=== PATIENT | female | born 1985 | race American Indian/Alaskan Native ===

== ENCOUNTER 2016-10-05 03:43 | Emergency (ER) | payer MEDICAID ==
[2016-10-05 04:38] VITALS: BP 114/68
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
== END 2016-10-05 08:52 | disposition home or self-care (01) ==
LOC: ED 03:43
DX: S09.90XA Unspecified injury of head, initial encounter (principal); J45.909 Unspecified asthma, uncomplicated; W22.8XXA Striking against or struck by other objects, initial encounter; Y93.9 Activity, unspecified; Y92.9 Unspecified place or not applicable; Y99.9 Unspecified external cause status
CPT/HCPCS: 70450; 99283

== ENCOUNTER 2016-10-07 19:19 | Emergency (ER) | payer OTHER, MEDICAID ==
[2016-10-07 19:47] VITALS: BP 109/64
[2016-10-07] MEDS ORDERED: TYLENOL PO ONE (19:48)
[2016-10-07] MEDS ORDERED: TYLENOL ONE (19:50)
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
== END 2016-10-07 22:01 | disposition home or self-care (01) ==
LOC: ED 19:19
DX: S13.4XXA Sprain of ligaments of cervical spine, initial encounter (principal); S76.011A Strain of muscle, fascia and tendon of right hip, initial encounter; S46.911A Strain of unspecified muscle, fascia and tendon at shoulder and upper arm level, right arm, initial encounter; S46.912A Strain of unspecified muscle, fascia and tendon at shoulder and upper arm level, left arm, initial encounter; V49.49XA Driver injured in collision with other motor vehicles in traffic accident, initial encounter; Y92.488 Other paved roadways as the place of occurrence of the external cause; Y93.89 Activity, other specified; Y99.8 Other external cause status
CPT/HCPCS: 72040

== ENCOUNTER 2016-10-26 04:45 | Emergency (ER) | payer MEDICAID, OTHER ==
[2016-10-26 05:02] VITALS: BP 124/80
[2016-10-26] MEDS ORDERED: FUL-GLO OP ONE (05:12)
[2016-10-26] MEDS ORDERED: TETRACAINE 0.5% ONE (05:12)
--- NOTE | 2016-10-26 05:18 | Emergency Department Report ---
ED Eye Problem HPI - General Chief complaint: Eye Problems Stated complaint: RIGHT EYE IRRITATION Time Seen by Provider: 10/26/16 05:00 Source: patient Mode of arrival: Ambulatory Limitations: No Limitations - History of Present Illness Initial comments: Patient is a 31-year-old female with no prior medical history who presents to ED complaining of right eye redness and itching 2 days. Patient states yesterday afternoon she saw a small fly flying to her side. Patient states she tried a swat the fly away that she hit her eye. Patient states later on days she started experiencing eye redness . Patient states she is clear drainage from that eye. She denies vision loss she denies blurred vision. She denies eye pain. MD chief complaint: eye redness Location: right eye Eye Symptoms: redness, itching Severity: moderate - Related Data Previous Rx's Medication Instructions Recorded Last Taken Type Ferrous Sulfate [Feosol 325 MG tab] 325 mg PO TID #90 tablet 03/27/14 Unknown Rx Ibuprofen [Motrin 800 MG tab] 800 mg PO Q8H PRN #90 tablet 03/27/14 Unknown Rx oxyCODONE /ACETAMINOPHEN [Percocet 1 tab PO Q6HR PRN #30 tablet 03/27/14 Unknown Rx 5/325 mg] Naproxen [Naprosyn TAB] 500 mg PO BID #14 tablet 10/05/16 Unknown Rx traMADol [Ultram 50 MG tab] 50 mg PO Q6HR PRN #18 tablet 10/05/16 Unknown Rx Cyclobenzaprine [Flexeril] 10 mg PO TID PRN #15 tablet 10/07/16 Unknown Rx Ibuprofen [Motrin 600 MG tab] 600 mg PO Q8H PRN #15 tablet 10/07/16 Unknown Rx Polymyxin B Sulf/Trimethoprim 1 drop OP QID #10 ml 10/26/16 Unknown Rx [Polytrim Eye Drops [id number]/0.1%] Allergies Allergy/AdvReac Type Severity Reaction Status Date / Time No Known Allergies Allergy Verified 03/27/14 18:53 ED Review of Systems ROS: Stated complaint: RIGHT EYE IRRITATION Other details as noted in HPI Constitutional: denies: chills, fever Eyes: denies: eye pain, eye discharge, vision change ENT: denies: ear pain, throat pain Respiratory: denies: cough, shortness of breath, wheezing Cardiovascular: denies: chest pain, palpitations Endocrine: no symptoms reported Gastrointestinal: denies: abdominal pain, nausea, diarrhea Genitourinary: denies: urgency, dysuria, discharge Musculoskeletal: denies: back pain, joint swelling, arthralgia Skin: denies: rash, lesions Neurological: denies: headache, weakness, paresthesias Psychiatric: denies: anxiety, depression Hematological/Lymphatic: denies: easy bleeding, easy bruising ED Past Medical Hx - Past Medical History Previous Medical History?: Yes Hx Hypertension: No Hx Diabetes: No Hx Deep Vein Thrombosis: No Hx Renal Disease: No Hx Sickle Cell Disease: No Hx Seizures: No Hx Asthma: Yes Hx COPD: No Hx HIV: No - Surgical History Past Surgical History?: Yes Additional Surgical History: x3 - Social History Smoking Status: Former Smoker Substance Use Type: Alcohol - Medications Home Medications: Home Medications Medication Instructions Recorded Confirmed Last Taken Type Ferrous Sulfate [Feosol 325 MG tab] 325 mg PO TID #90 tablet 03/27/14 Unknown Rx Ibuprofen [Motrin 800 MG tab] 800 mg PO Q8H PRN #90 tablet 03/27/14 Unknown Rx oxyCODONE /ACETAMINOPHEN [Percocet 1 tab PO Q6HR PRN #30 tablet 03/27/14 Unknown Rx 5/325 mg] Naproxen [Naprosyn TAB] 500 mg PO BID #14 tablet 10/05/16 Unknown Rx traMADol [Ultram 50 MG tab] 50 mg PO Q6HR PRN #18 tablet 10/05/16 Unknown Rx Cyclobenzaprine [Flexeril] 10 mg PO TID PRN #15 tablet 10/07/16 Unknown Rx Ibuprofen [Motrin 600 MG tab] 600 mg PO Q8H PRN #15 tablet 10/07/16 Unknown Rx Polymyxin B Sulf/Trimethoprim 1 drop OP QID #10 ml 10/26/16 Unknown Rx [Polytrim Eye Drops [id number]/0.1%] ED Physical Exam - General Limitations: No Limitations General appearance: alert, in no apparent distress - Head Head exam: Present: atraumatic, normocephalic - Eye Eye exam: Present: normal appearance, PERRL, EOMI, conjunctival injection, periorbital swelling. Absent: scleral icterus, periorbital tenderness Pupils: Present: normal accommodation - Expanded Eye Exam Expanded Eyelids: Normal Inspection: Left, Swelling: Right Pupils: Regular, Round: Bilateral, Reactive: Bilateral Sclera/Conjunctival: Normal Inspection: Left, Injection: Right Anterior chamber: Normal Inspection: Bilateral Visual acuity (R) = 20/: 30 Visual acuity (L) = 20/: 72 With correction: No - ENT ENT exam: Present: mucous membranes moist - Neck Neck exam: Present: normal inspection - Respiratory Respiratory exam: Present: normal lung sounds bilaterally. Absent: respiratory distress - Cardiovascular Cardiovascular Exam: Present: regular rate, normal rhythm. Absent: systolic murmur, diastolic murmur, rubs, gallop - GI/Abdominal GI/Abdominal exam: Present: soft, normal bowel sounds - Extremities Exam Extremities exam: Present: normal inspection - Back Exam Back exam: Present: normal inspection - Neurological Exam Neurological exam: Present: alert, oriented X3 - Psychiatric Psychiatric exam: Present: normal affect, normal mood - Skin Skin exam: Present: warm, dry, intact, normal color. Absent: rash ED Course Vital Signs 10/26/16 04:50 Temperature 99 F Pulse Rate 88 Respiratory 18 Rate Blood Pressure 124/80 O2 Sat by Pulse 99 Oximetry ED Medical Decision Making - Medical Decision Making 31-year-old female presents with corneal abrasion/conjunctivitis ED course: Slit lamp test positive for corneal abrasion 6:00, uptake at 6:00, no foreign objects seen Discussed patient will go home on some antibiotic eyedrops. Discussed patient to follow up with dog catcher if symptoms worsen to return to ED otherwise follow up with primary care physician as well. Vital signs are normal. Patient is in no acute distress. Vision is intact bilaterally, no loss of vision Critical care attestation.: If time is entered above; I have spent that time in minutes in the direct care of this critically ill patient, excluding procedure time. ED Disposition Clinical Impression: Conjunctivitis Qualifiers: Conjunctivitis type: acute Acute conjunctivitis type: unspecified Laterality: right Qualified Code(s): H10.31 - Unspecified acute conjunctivitis, right eye Corneal abrasion, right Qualifiers: Encounter type: initial encounter Qualified Code(s): S05.01XA - Injury of conjunctiva and corneal abrasion without foreign body, right eye, initial encounter Disposition: TO HOME OR SELFCARE Is pt being admited?: No Does the pt Need Aspirin: No Condition: Stable Instructions: Conjunctivitis (ED), Orbital Cellulitis (ED), Subconjunctival Hemorrhage (ED), Corneal Abrasion (ED) Prescriptions: Polymyxin B Sulf/Trimethoprim [Polytrim Eye Drops [id number]/0.1%] 1 drop OP QID #10 ml Referrals: SRAVAN AVILES MD [Staff Physician] - 3-5 Days [facility] [place]] - 3-5 Days [facility] [Outside] - 3-5 Days Forms: Work/School Release Form(ED) Time of Disposition: 05:50
[2016-10-26] MEDS ORDERED: BSS 1 DROPS, TETRACAINE 0.5% 1 DROPS, FUL-GLO 1 MG TP ONE (05:23)
== END 2016-10-26 05:50 | disposition home or self-care (01) ==
LOC: ED 04:45
DX: S05.01XA Injury of conjunctiva and corneal abrasion without foreign body, right eye, initial encounter (principal); H10.31 Unspecified acute conjunctivitis, right eye; J45.909 Unspecified asthma, uncomplicated; Z87.891 Personal history of nicotine dependence; X58.XXXA Exposure to other specified factors, initial encounter; Y93.9 Activity, unspecified; Y92.9 Unspecified place or not applicable; Y99.9 Unspecified external cause status
CPT/HCPCS: 99283

== ENCOUNTER 2018-04-22 09:24 | Emergency (ER) | payer MEDICAID | END 2018-04-22 11:18 | disposition left against medical advice (07) | LOC: ED 09:24 ==

== ENCOUNTER 2020-02-28 09:00 | Inpatient (IN) | payer MEDICAID ==
--- NOTE | 2020-02-28 10:27 | History and Physical Report ---
History of Present Illness Date of examination: 02/28/20 Date of admission: 02/28/20 09:00 History of present illness: PT is a 34 yo at 39w 3d who is here for her RLTCS. PT with h/o C/S x 3. Preg mostly uncomplicated. PT had GC in October. Anemia. GBS pos. PT is on LDA for h/o preeclampsia but not in this . Past History Past Medical History: asthma, other (GC, anemia, h/o depression.) Past Surgical History: section (x 3) - Obstetrical History Expected Date of Delivery: 03/03/20 Actual Gestation: 39 Week(s) 3 Day(s) : 5 Hx # Term Pregnancies: 3 Spontaneous Abortions: 1 Number of Living Children: 3 Medications and Allergies Allergies Allergy/AdvReac Type Severity Reaction Status Date / Time No Known Allergies Allergy Verified 02/28/20 10:07 Home Medications Medication Instructions Recorded Confirmed Last Taken Type Ferrous Sulfate [Feosol 325 MG tab] 325 mg PO TID #90 tablet 03/27/14 Unknown Rx Ibuprofen [Motrin 800 MG tab] 800 mg PO Q8H PRN #90 tablet 03/27/14 Unknown Rx oxyCODONE /ACETAMINOPHEN [Percocet 1 tab PO Q6HR PRN #30 tablet 03/27/14 Unknown Rx 5/325 mg] Naproxen [Naprosyn TAB] 500 mg PO BID #14 tablet 10/05/16 Unknown Rx traMADoL [Ultram 50 MG tab] 50 mg PO Q6HR PRN #18 tablet 10/05/16 Unknown Rx Cyclobenzaprine [Flexeril] 10 mg PO TID PRN #15 tablet 10/07/16 Unknown Rx Ibuprofen [Motrin 600 MG tab] 600 mg PO Q8H PRN #15 tablet 10/07/16 Unknown Rx Polymyxin B Sulf/Trimethoprim 1 drop OP QID #10 ml 10/26/16 Unknown Rx [Polytrim Eye Drops [id number]/0.1%] Review of Systems All systems: negative (except HPI) - Vital Signs Vital signs: Vital Signs Pulse BP 102 H 117/59 02/28/20 10:02 02/28/20 10:02 Temp Pulse Resp BP Pulse Ox 103 H 117/59 99 02/28/20 10:18 02/28/20 10:02 02/28/20 10:18 - Physical Exam Abdomen: Positive: normal appearance, soft. Negative: tenderness Results Result Diagrams: 02/28/20 10:50 All other labs normal. Assessment and Plan - Patient Problems (1) Previous section Current Visit: Yes Status: Acute Plan to address problem: PT is for RLTCS. Patient fully consented for the surgery. Risks, benefits, and alternatives were all discussed with the patient including risk of bleeding, infection, and potential for injury. Patient understands and accepts these risks. Patient agrees to proceed with surgery. All questions were answered.
--- NOTE | 2020-02-28 10:28 | Anesthesia Day of Surgery ---
Anesthesia Day of Surgery - Day of Surgery Patient Examined: Yes Patient H&P Reviewed: Yes Patient is NPO: Yes Beta Blockers: No Cardiac Clearance: No Pulmonary Clearance: No Rubio's Test: N/A
--- NOTE | 2020-02-28 10:29 | Anesthesia Consultation ---
Anesthesia Consult and Med Hx Date of service: 02/28/20 - Airway Anesthetic Teeth Evaluation: Good ROM Head & Neck: Adequate Mental/Hyoid Distance: Adequate Mallampati Class: Class III Intubation Access Assessment: Possibly Difficult - Pulmonary Exam CTA: Yes - Cardiac Exam Cardiac Exam: RRR - Pre-Operative Health Status ASA Pre-Surgery Classification: ASA2 Proposed Anesthetic Plan: Spinal Nerve Block: TAP - Pulmonary Hx Smoking: No Hx Asthma: Yes COPD: No Hx Pneumonia: No Hx Sleep Apnea: No - Cardiovascular System Hx Hypertension: Yes Hx Heart Attack/AMI: No - Central Nervous System Hx Seizures: No Hx Psychiatric Problems: Yes (depression/ 2014 no meds) - Gastrointestinal Hx Gastroesophageal Reflux Disease: No - Endocrine Hx Renal Disease: No Hx End Stage Renal Disease: No Hx Insulin Dependent Diabetes: No Hx Non-Insulin Dependent Diabetes: No Hx Hypothyroidism: No Hx Hyperthyroidism: No - Hematic Hx Anemia: No Hx Sickle Cell Disease: No - Other Systems Hx Alcohol Use: No Hx Obesity: Yes
[2020-02-28] MEDS ORDERED: BICITRA ORAL LIQD 30ML PO SCH (10:30)
[2020-02-28] MEDS ORDERED: METOCLOPRAMIDE 10 MG/2 ML INJ IV SCH (10:30)
[2020-02-28] MEDS ORDERED: FAMOTIDINE 20 MG/2 ML INJ IV SCH (10:30)
[2020-02-28] MEDS ORDERED: LACTATED RINGERS 2,000 ML ONE (10:34)
[2020-02-28] MEDS ORDERED: PROMETHAZINE 25 MG TAB PO PRN (11:00)
[2020-02-28] MEDS ORDERED: PROMETHAZINE 25 MG RECT SUPP PR PRN (11:00)
[2020-02-28] MEDS ORDERED: NalbUPHINE 10 MG/1 ML INJ IV PRN (11:00)
[2020-02-28] MEDS ORDERED: ONDANSETRON 4 MG/2 ML INJ IV PRN ×2 (11:00→14:28)
[2020-02-28] MEDS ORDERED: LACTATED RINGERS 1,000 ML IV SCH (11:00)
[2020-02-28] MEDS ORDERED: OXYTOCIN DRIP 30 UNITS/500 ML BAG IV SCH ×2 (11:00→15:00)
[2020-02-28] MEDS ORDERED: diphenhydrAMINE 50 MG/ML VIAL IV PRN (11:00)
[2020-02-28] MEDS ORDERED: NALOXONE 0.4 MG/1 ML INJ IV PRN ×2 (11:00→14:24)
[2020-02-28] MEDS ORDERED: HYDROmorphone 1 MG/1 ML INJ IV PRN (11:00)
[2020-02-28 11:27] LABS: Basophils % (Auto) 0.1 % (0.0-1.8); Eosinophils % (Auto) 0.6 % (0.0-4.3); Hematocrit 34.8 % (30.3-42.9); Hemoglobin 11.5 gm/dl (10.1-14.3); Lymphocytes # (Auto) 1.7 K/mm3 (1.2-5.4); Lymphocytes % (Auto) 19.6 % (13.4-35.0); Mean Corpuscular HGB Conc 33 % (30-34); Mean Corpuscular Volume 85 fl (79-97); Monocytes # (Auto) 0.8 K/mm3 (0.0-0.8); Monocytes % (Auto) 9.5 % (0.0-7.3); Platelet Count 240 K/mm3 (140-440); Red Blood Count 4.11 M/mm3 (3.65-5.03); Red Cell Distribution Width 15.2 % (13.2-15.2)
[2020-02-28] MEDS ORDERED: miSOPROStol 200 MCG TAB ONE (11:37)
[2020-02-28] MEDS ORDERED: BUPIVACAINE /DEX-WATER 0.75% (2 ML) AMPULE INFILTRATI ONE (12:14)
[2020-02-28] MEDS ORDERED: BUPIVACAINE/PF (0.5%) 5 MG/1 ML 30 ML VIAL INFILTRATI ONE (12:14)
[2020-02-28] MEDS ORDERED: ONDANSETRON 4 MG/2 ML INJ ONE (12:14)
[2020-02-28] MEDS ORDERED: KETOROLAC 30 MG/1 ML INJ ONE (12:14)
[2020-02-28] MEDS ORDERED: ceFAZolin/STERILE WATER 2 GM/20 ML SYRINGE IV ONE (12:26)
--- NOTE | 2020-02-28 12:51 | Progress Note ---
Spinal Anesthesia Block - Spinal Anesthesia Block Start Time: 12:26 Stop Time: 12:40 Performed by:: ANAHI OROZCO ([facility]) Procedure: Spinal anesthesia block is being performed for [C/S]. H&P, labs have been reviewed. Patient's questions and concerns have been answered. Informed consent has been performed. Timeout has was performed. Patient in sitting position on side of bed. Sterile prep and drape was performed. 3 mL 1% l idocaine skin wheal at L [3]-L [4]. Needle introducer advanced. 25-gauge spinal needle advanced, [+] CSF [-] blood. [Marcaine 13.5 and Precedex 30mcg] Spinal dose was given. All needles removed. Patient tolerated procedure well.
[2020-02-28] MEDS ORDERED: fentaNYL 100 MCG/2 ML INJ ONE (13:17)
[2020-02-28] MEDS ORDERED: propofoL 200 MG/20 ML VIAL IV ONE ×2 (13:19→13:39)
[2020-02-28] MEDS ORDERED: KETOROLAC 30 MG/1 ML INJ IV PRN (14:24)
[2020-02-28] MEDS ORDERED: LANOLIN/ZINC/DIMETHICONE (LANSINOH) 7 GM TP PRN (14:24)
[2020-02-28] MEDS ORDERED: WITCH HAZEL/ GLYCERIN PAD TP PRN (14:24)
--- NOTE | 2020-02-28 14:24 | Procedure Note ---
OB Delivery Note - Delivery Date of Delivery: 02/28/20 Surgeon: MARILU RUST Estimated blood loss: other (800cc) - Section Preop diagnosis: repeat Postop diagnosis: same section procedure: section, repeat low transverse Disposition: PACU Complications: none Narrative: Indication: 34 yo at 39w 3d with h/o 3 C-sections is here for RLTCS Findings: Normal uterus, tubes and ovaries except for some intra-abdominal scarring. Patient had a thick band of scarring between the anterior uterine serosal wall and the anterior peritoneal wall. Clear fluid. No nuchal cord. Procedure: Patient taken to the operating room and prepped and draped in the us ual fashion. Pfannenstiel skin incision was made and carried down to the underlying fascia. Fascia was incised and the incision was extended bilaterally. Rectus fascia dissected off the rectus muscle both superiorly and inferiorly. Peritoneum identified tented up and entered. The above-noted thick band of scar tissue had to be suture ligated using 0 Vicryl x2. Peritoneal incision extended superiorly and inferiorly with good visualization of the bladder. Bladder blade was placed. Uterine incision was made and the incision was extended bilaterally. The baby was delivered from in the typical vertex fashion. Baby bulb suctioned at the incision site and again after delivery. Cord was delayed clamped and cut and handed off to waiting team. The placenta was delivered spontaneously. The uterus was exteriorized and cleared of all clots and debris. Uterine incision closed with 0 Vicryl in a running locked fashion followed by a second imbricating layer of 0 Vicryl. Several additional [id number] sutures were required and eventually good hemostasis was noted. Her urine was clear. Uterus tubes and ovaries were returned to the abdominal cavity. Gutters were cleared of all clots and debris and the pelvis was well irrigated. Good hemostasis noted. Surgicel and Interceed placed over the uterine incision and over the lower uterine segment in the midline. Attention was turned to the rectus fascia which was reapproximated with 0 Vicryl in a running fashion. Subcutaneous tissue was irrigated and reapproximated with 2-0 Vicryl in a running fashion. Skin was closed with 4-0 Vicryl in a subcuticular fashion followed by Dermabond. The procedure was concluded at this point and the patient tolerated the procedure well. All instrument and lap counts were correct. - Infant A at 1 minute: 8 at 5 minutes: 9 Gender: Female
[2020-02-28] MEDS ORDERED: SENNOSIDES 8.6 MG TAB PO PRN (14:28)
[2020-02-28] MEDS ORDERED: SIMETHICONE 80 MG CHEW TAB PO PRN (14:28)
[2020-02-28] MEDS ORDERED: MAGNESIUM HYDROXIDE (MOM) ORAL LIQD UDC PO PRN (14:28)
--- NOTE | 2020-02-28 14:48 | Progress Note ---
Regional Anesthesia Block - Regional Anesthesia Block Start Time: 14:37 Stop Time: 14:45 Performed By:: ANAHI OROZCO (Nick [facility]) Procedure: Patient consented for TAP block for post surgical pain management. Patient identified, monitors placed, and time out performed. Mid axillary TAP identified bilaterally via ultrasound. Skin prepped bilaterally with [chlorhexidine] and [20g stimuplex] needle advanced to the TAP. 30ml [Marcaine 0.25% with 25mcg Precedex and Decadron 4mg] injected under ultrasound guidance on the [left] side. 30ml [Marcaine 0.25% with 25mcg Precedex and Decadron 4mg] injected under ultrasound guidance on the [right] side.
[2020-02-28] MEDS: oxyCODONE /ACETAMINOPHEN 5-325MG TAB PO PRN (20:57)
[2020-02-29] MEDS: oxyCODONE /ACETAMINOPHEN 5-325MG TAB PO PRN ×3 (01:57→18:28)
[2020-02-29] MEDS: IBUPROFEN 800 MG TAB PO PRN ×3 (06:10→22:11)
[2020-02-29 06:58] LABS: Hematocrit 32.4 % (30.3-42.9); Hemoglobin 10.6 gm/dl (10.1-14.3)
--- NOTE | 2020-02-29 10:51 | Post Anesthesia Evaluation ---
- Post Anesthesia Evaluation Patient Participated: Yes Airway Patent: Yes Stable Respiratory Function: Yes Nausea/Vomiting: No Temp > 96.8F: Yes Pain Manageable: Yes Adequeate Hydration: Yes Anesthesia Complications: No Block Receding Appropriately: Yes Patient on Ventilator: No
[2020-02-29] MEDS ORDERED: IBUPROFEN 800 MG TAB PO PRN (14:24)
[2020-02-29] MEDS ORDERED: ALBUTEROL 2.5 MG/3 ML NEBU IH ONE (18:36)
--- NOTE | 2020-02-29 21:36 | Progress Note ---
Assessment and Plan A: S/P repeat LTCS Hx asthma; crackles rich lobes P: Continue monitoring Nebulizer tx prn Encourage ambulation and incentive kaykay use Subjective - Subjective Date of service: 02/29/20 Principal diagnosis: Repeat LTCS Patient reports: appetite normal, voiding normally, pain well controlled, ambulating normally, other (PASSING GAS) : doing well, nursing well Objective - Vital Signs Latest vital signs: Vital Signs Temp Pulse Pulse Resp Resp BP BP 02/29/20 18:45 86 14 02/29/20 18:28 20 02/29/20 16:44 20 02/29/20 16:02 98.4 F 103 H 20 129/68 02/29/20 11:43 98.2 F 99 H 20 112/69 02/29/20 10:22 20 02/29/20 08:25 98.2 F 92 H 16 118/68 02/29/20 05:10 98.2 F 79 20 124/67 02/29/20 01:57 18 02/29/20 00:05 97.6 F 87 20 111/53 Pulse Ox 02/29/20 18:45 02/29/20 18:28 02/29/20 16:44 02/29/20 16:02 99 02/29/20 11:43 98 02/29/20 10:22 02/29/20 08:25 100 02/29/20 05:10 99 02/29/20 01:57 02/29/20 00:05 95 Intake and Output 02/29/20 02/29/20 02/29/20 06:59 14:59 22:59 Intake Total 480 240 Output Total 600 Balance -120 240 Intake: Oral 480 240 Output: Urine 600 Void 600 Other: Total, Intake Amount 240 120 Total, Output Amount 400 # Voids Void 2 1 - Exam Breasts: Present: normal Cardiovascular: Present: Regular rate Lungs: Present: Other (Scattered crackles rich lobes) Abdomen: Present: normal appearance, soft, normal bowel sounds Vulva: both: normal Uterus: Present: normal, firm, fundal height below umbilicus Extremities: Present: normal Incision: Present: normal, dry, intact, dressed
[2020-03-01] MEDS: oxyCODONE /ACETAMINOPHEN 5-325MG TAB PO PRN ×3 (00:56→15:39)
[2020-03-01] MEDS: IBUPROFEN 800 MG TAB PO PRN ×2 (09:09→18:15)
[2020-03-01] MEDS ORDERED: ALBUTEROL 2.5 MG/3 ML NEBU IH ONE (09:38)
--- NOTE | 2020-03-01 11:55 | Discharge Summary ---
Providers - Providers Date of Admission: 02/28/20 09:00 Date of discharge: 03/02/20 Attending physician: MARILU RUST Primary care physician: INPATIENT CARE MANAGER RN Hospitalization Reason for admission: section Delivery: Procedure: repeat low transverse Episiotomy: none Laceration: none Other procedures: none complications: none Discharge diagnosis: IUP at term delivered [place] baby: female Hospital course: See admission H & P; OB operative summary and PP progress notes Condition at discharge: Good Disposition: DC-01 TO HOME OR SELFCARE - Discharge Diagnoses (1) Status post repeat low transverse section Status: Acute (2) Anemia Status: Acute Qualifiers: Anemia type: other cause Other causes of anemia: acute posthemorrhagic Qualified Code(s): D62 - Acute posthemorrhagic anemia Comment: Asymptomatic Plan - Discharge Medications Prescriptions: Ibuprofen [Motrin 800 MG tab] 800 mg PO Q6H PRN #30 tablet PRN Reason: Pain, Mild (1-3) oxyCODONE /ACETAMINOPHEN [Percocet 5/325 mg] 1 tab PO Q6H PRN #30 tablet PRN Reason: Pain, Moderate (4-6) - Provider Discharge Summary Activity: routine, no sex for 6 weeks, no heavy lifting 4 weeks, no strenuous exercise Diet: other (Iron rich diet) Instructions: routine Additional instructions: [] Smoking cessation referral if applicable(refer to patient education folder for contact #) [] Refer to [facility]'s [facility] Center Booklet Call your doctor immediately for: * Fever > 100.5 * Heavy vaginal bleeding ( >1 pad per hour) * Severe persistent headache * Shortness of breath * Reddened, hot, painful area to leg or breast * Drainage or odor from incision. * Keep incision clean and dry at all times and follow doctor's instructions regarding bathing/showering - Follow up plan Follow up: MARILU RUST MD [Staff Physician] - 14 Days
[2020-03-01] MEDS ORDERED: ALBUTEROL 2.5 MG/3 ML NEBU IH PRN (16:52)
[2020-03-02] MEDS: IBUPROFEN 800 MG TAB PO PRN ×2 (00:45→15:44)
[2020-03-02] MEDS: oxyCODONE /ACETAMINOPHEN 5-325MG TAB PO PRN (08:51)
[2020-03-02 17:51] VITALS: BP 121/75
== END 2020-03-02 18:15 | disposition home or self-care (01) | DRG 765 ==
LOC: APU 09:00 → OB 16:13
PROVIDERS: ADMIT Obstetrics & Gynecology; ATTEND Obstetrics & Gynecology
PROC: 10D00Z1 Extraction of Products of Conception, Low, Open Approach (ICD-10-PCS; principal; 2020-02-28)
DX: O34.211 Maternal care for low transverse scar from previous cesarean delivery (principal); D62 Acute posthemorrhagic anemia; Z37.0 Single live birth; Z3A.39 39 weeks gestation of pregnancy; O99.344 Other mental disorders complicating childbirth; F32.9 Major depressive disorder, single episode, unspecified; O99.214 Obesity complicating childbirth; E66.9 Obesity, unspecified; O99.52 Diseases of the respiratory system complicating childbirth; J45.909 Unspecified asthma, uncomplicated; O90.81 Anemia of the puerperium; O99.824 Streptococcus B carrier state complicating childbirth
CPT/HCPCS: 36415; 85014; 85018; 85025; 86850; 86900; 86901; 94640; G0378; C1765; J0690; J1885; J2405; J2704; J2765; J3010; J3490

== ENCOUNTER 2020-03-12 12:55 | Observation (INO) | payer MEDICAID ==
[2020-03-12] MEDS ORDERED: MAGNESIUM SULFATE 4 GM/100 ML BAG IV ONE (14:08)
--- NOTE | 2020-03-12 14:46 | History and Physical Report ---
History of Present Illness Date of examination: 03/12/20 Date of admission: 03/12/20 13:21 History of present illness: 34 yo G5 P 4014 is now 2 weeks postop s/p RLTCS. She came to office today with RUIZ x 4 days and elevated BPs, both of which she did not have during the . Tylenol has not helped. BPs 147-154/100 in the office. No protein of urine dip. No h/o migraines. OF note, she has had preeclampsia in prior pregnancies. Past History Past Medical History: other (preeclampsia in prior pregnancies, asthma) Past Surgical History: section (x 4) [employer] History: trichomonas - Obstetrical History : 5 Para: 4 Hx # Term Pregnancies: 4 Spontaneous Abortions: 1 Number of Living Children: 4 Medications and Allergies Allergies Allergy/AdvReac Type Severity Reaction Status Date / Time No Known Allergies Allergy Verified 02/28/20 10:07 Home Medications Medication Instructions Recorded Confirmed Last Taken Type Ferrous Sulfate [Feosol 325 MG tab] 325 mg PO TID #90 tablet 03/27/14 03/01/20 Unknown Rx Ibuprofen [Motrin 800 MG tab] 800 mg PO Q8H PRN #90 tablet 03/27/14 03/01/20 Unknown Rx oxyCODONE /ACETAMINOPHEN [Percocet 1 tab PO Q6HR PRN #30 tablet 03/27/14 03/01/20 Unknown Rx 5/325 mg] Naproxen [Naprosyn TAB] 500 mg PO BID #14 tablet 10/05/16 03/01/20 Unknown Rx traMADoL [Ultram 50 MG tab] 50 mg PO Q6HR PRN #18 tablet 10/05/16 03/01/20 Unknown Rx Cyclobenzaprine [Flexeril] 10 mg PO TID PRN #15 tablet 10/07/16 03/01/20 Unknown Rx Ibuprofen [Motrin 600 MG tab] 600 mg PO Q8H PRN #15 tablet 10/07/16 03/01/20 Unknown Rx Polymyxin B Sulf/Trimethoprim 1 drop OP QID #10 ml 10/26/16 03/01/20 Unknown Rx [Polytrim Eye Drops [id number]/0.1%] Ibuprofen [Motrin 800 MG tab] 800 mg PO Q6H PRN #30 tablet 02/28/20 Unknown Rx oxyCODONE /ACETAMINOPHEN [Percocet 1 tab PO Q6H PRN #30 tablet 02/28/20 Unknown Rx 5/325 mg] Active Meds: Active Medications Magnesium Sulfate (Magnesium Sulfate 40gm/1000ml) 40 gm in 1,000 mls @ 50 mls/hr IV DIRECT KYARA Lactated Ringer's (Lactated Ringers) 1,000 mls @ 75 mls/hr IV DIRECT KYARA Labetalol HCl (Labetalol) 100 mg PO BID KYARA Review of Systems All systems: negative (except HPI) - Vital Signs Vital signs: Vital Signs Pulse BP Pulse Ox 50 L 164/86 96 03/12/20 14:01 03/12/20 14:01 03/12/20 14:01 Temp Pulse Resp BP Pulse Ox 99.1 F 56 L 14 166/85 100 03/12/20 14:02 03/12/20 14:36 03/12/20 14:02 03/12/20 14:29 03/12/20 14:36 - Physical Exam Abdomen: Positive: normal appearance, soft. Negative: tenderness Results All other labs normal. Assessment and Plan - Patient Problems (1) Preeclampsia in period Current Visit: Yes Status: Acute Plan to address problem: PP preeclampsia suspected especially with her new onset elevated BPs and persistent HAs. Will keep on Mag sulfate for 24 hrs, start Labetalol 100 mg BID and check preeclamptic labs. PT understands and agrees with the plan.
[2020-03-12] MEDS ORDERED: MAGNESIUM SULFATE 40GM/1000ML 40 GM/1,000 ML BAG IV SCH (15:00)
[2020-03-12] MEDS: LACTATED RINGERS 1,000 ML IV SCH (15:45)
[2020-03-12 16:50] LABS: Hematocrit 30.7 % (30.3-42.9); Hemoglobin 9.7 gm/dl (10.1-14.3); Mean Corpuscular HGB Conc 31 % (30-34); Mean Corpuscular Volume 84 fl (79-97); Platelet Count 285 K/mm3 (140-440); Red Blood Count 3.64 M/mm3 (3.65-5.03); Red Cell Distribution Width 14.6 % (13.2-15.2)
[2020-03-12 17:07] LABS: Alanine Aminotransferase 78 units/L (7-56); Albumin 3.6 g/dL (3.9-5); Blood Urea Nitrogen 14 mg/dL (7-17); Calcium 9.3 mg/dL (8.4-10.2); Hemolysis Index 13
[2020-03-12 17:10] LABS: BUN/Creatinine Ratio 20
[2020-03-12] MEDS: BUTALB/ACETAMINOPHEN/CAFFEINE TAB PO PRN (18:08)
[2020-03-12] MEDS ORDERED: ALBUTEROL 2.5 MG/3 ML NEBU IH PRN (18:37)
[2020-03-13] MEDS: BUTALB/ACETAMINOPHEN/CAFFEINE TAB PO PRN ×3 (00:31→08:20)
[2020-03-13] MEDS: LACTATED RINGERS 1,000 ML IV SCH (04:09)
--- NOTE | 2020-03-13 13:57 | Progress Note ---
Assessment and Plan - Patient Problems (1) Preeclampsia in period Current Visit: Yes Status: Acute Plan to address problem: Patient is stable status post almost 24 hours of magnesium sulfate with a resolved headache status post Fioricet. Blood pressures are stable on 100 twice daily of labetalol. Patient preeclamptic labs done yesterday which were within normal except her ALT was a little elevated at 78. We will repeat that today before the patient leaves. We will send patient home once for 24 hours of magnesium is completed and she will follow-up in the office in 1 week. Patient understands and agrees with the plan. Subjective - Subjective Date of service: 03/13/20 Interval history: 34 yo G5 P 4014 is now 2 weeks postop s/p RLTCS. She came to office today with RUIZ x 4 days and elevated BPs, both of which she did not have during the . Tylenol has not helped. BPs 147-154/100 in the office. No protein of urine dip. No h/o migraines. OF note, she has had preeclampsia in prior pregnancies. Patient reports: other (PT doing much better today. Pt is almost 24 hours completed on her magnesium sulfate. Patient was put on 100 mg twice daily of labetalol which did improve her blood pressure. Her headache though did not resolve until Fioricet was given. That is helped her headaches significantly and patient feels much better now. No other preeclamptic symptoms.) Objective - Vital Signs Latest vital signs: Vital Signs Temp Pulse Resp BP BP Pulse Ox 03/13/20 13:23 68 99 03/13/20 13:18 80 100 03/13/20 13:13 64 100 03/13/20 13:08 68 100 03/13/20 13:03 71 100 03/13/20 13:02 72 93 03/13/20 12:58 72 100 03/13/20 12:55 92 03/13/20 12:53 69 100 03/13/20 12:48 71 100 03/13/20 12:45 64 132/77 03/13/20 12:44 69 93 03/13/20 12:43 65 100 03/13/20 12:38 66 100 03/13/20 12:33 66 100 03/13/20 12:28 64 100 03/13/20 12:23 61 100 03/13/20 12:18 62 100 03/13/20 12:15 61 143/88 03/13/20 12:13 69 100 03/13/20 12:08 67 100 03/13/20 12:03 60 100 03/13/20 11:58 67 100 03/13/20 11:54 64 92 03/13/20 11:53 67 100 03/13/20 11:48 77 97 03/13/20 11:46 53 L 91 03/13/20 11:45 58 L 133/75 03/13/20 11:43 61 100 03/13/20 11:38 65 100 03/13/20 11:33 58 L 100 03/13/20 11:28 55 L 100 03/13/20 11:23 60 99 03/13/20 11:18 72 98 03/13/20 09:34 62 99 03/13/20 09:29 62 100 03/13/20 09:24 64 100 03/13/20 09:19 65 100 03/13/20 09:15 64 139/85 03/13/20 09:14 68 100 03/13/20 09:09 67 100 03/13/20 09:06 73 94 03/13/20 09:04 71 100 03/13/20 09:00 70 90 03/13/20 08:59 72 91 03/13/20 08:54 75 100 03/13/20 08:49 73 100 03/13/20 08:45 65 130/87 03/13/20 08:44 67 100 03/13/20 08:39 65 97 03/13/20 08:34 63 100 03/13/20 08:29 61 99 03/13/20 08:24 59 L 99 03/13/20 08:20 98.4 F 62 16 144/87 96 03/13/20 08:19 62 100 03/13/20 08:18 63 89 03/13/20 08:15 65 144/87 03/13/20 08:14 69 100 03/13/20 08:12 65 83 L 03/13/20 08:09 69 94 03/13/20 08:04 74 98 03/13/20 07:15 62 137/89 03/13/20 06:45 67 136/81 03/13/20 06:44 74 98 03/13/20 06:39 62 97 03/13/20 06:34 63 98 03/13/20 06:29 63 100 03/13/20 06:24 72 95 03/13/20 06:19 58 L 98 03/13/20 06:17 57 L 94 03/13/20 06:15 53 L 136/78 03/13/20 06:14 55 L 98 03/13/20 06:10 57 L 91 03/13/20 06:09 57 L 98 03/13/20 06:04 57 L 96 03/13/20 06:02 57 L 94 03/13/20 06:00 98.2 F 18 03/13/20 05:59 59 L 96 03/13/20 05:54 54 L 99 03/13/20 05:52 55 L 93 03/13/20 05:49 54 L 97 03/13/20 05:45 54 L 140/79 03/13/20 05:44 56 L 97 03/13/20 05:39 56 L 98 03/13/20 05:36 59 L 91 03/13/20 05:34 56 L 98 03/13/20 05:29 54 L 99 03/13/20 05:26 60 93 03/13/20 05:24 59 L 96 03/13/20 05:20 60 94 03/13/20 05:19 60 95 03/13/20 05:15 56 L 147/80 03/13/20 05:14 61 91 03/13/20 05:13 66 91 03/13/20 05:09 66 97 03/13/20 05:04 62 96 03/13/20 04:59 69 99 03/13/20 04:54 66 99 03/13/20 04:41 69 93 03/13/20 04:36 77 96 03/13/20 04:31 65 97 03/13/20 04:26 62 97 03/13/20 04:21 66 96 03/13/20 04:16 63 96 03/13/20 04:15 61 109/55 93 03/13/20 04:11 62 97 03/13/20 04:06 62 97 03/13/20 04:01 74 99 03/13/20 03:56 62 96 03/13/20 03:51 63 96 03/13/20 03:46 62 96 03/13/20 03:45 60 115/55 03/13/20 03:41 61 98 03/13/20 03:40 71 91 03/13/20 03:36 65 97 03/13/20 03:31 59 L 97 03/13/20 03:28 63 92 03/13/20 03:26 62 97 03/13/20 03:22 67 92 03/13/20 03:21 65 98 03/13/20 03:16 63 99 03/13/20 03:15 63 127/60 03/13/20 03:11 70 96 03/13/20 03:06 68 97 03/13/20 03:01 79 94 03/13/20 02:56 63 97 03/13/20 02:51 61 97 03/13/20 02:46 57 L 98 03/13/20 02:45 58 L 119/57 03/13/20 02:41 60 99 03/13/20 02:36 59 L 96 03/13/20 02:31 55 L 97 03/13/20 02:26 58 L 96 03/13/20 02:21 56 L 97 03/13/20 02:16 61 98 03/13/20 02:15 59 L 131/65 03/13/20 02:12 69 92 03/13/20 02:11 69 99 03/13/20 02:06 73 95 03/13/20 01:53 66 99 03/13/20 01:48 62 99 03/13/20 01:45 64 136/67 03/13/20 01:43 63 99 03/13/20 01:38 62 98 03/13/20 01:33 63 97 03/13/20 01:28 61 98 03/13/20 01:23 60 99 03/13/20 01:18 58 L 98 03/13/20 01:15 60 131/67 03/13/20 01:13 61 98 03/13/20 01:08 58 L 98 03/13/20 01:03 56 L 98 03/13/20 00:58 59 L 98 03/13/20 00:53 57 L 98 03/13/20 00:48 58 L 97 03/13/20 00:45 59 L 145/89 03/13/20 00:43 55 L 97 03/13/20 00:38 58 L 97 03/13/20 00:33 61 99 03/13/20 00:28 60 99 03/13/20 00:23 58 L 96 03/13/20 00:18 64 99 03/13/20 00:15 63 136/85 03/13/20 00:13 71 97 03/13/20 00:08 57 L 98 03/13/20 00:03 57 L 99 03/13/20 00:00 98 F 20 03/12/20 23:58 59 L 100 03/12/20 23:54 162 H 63 L 03/12/20 23:53 79 L 03/12/20 23:46 77 98 03/12/20 23:45 65 164/96 03/12/20 23:44 65 94 03/12/20 23:40 67 97 03/12/20 23:35 65 97 03/12/20 23:30 68 96 03/12/20 23:26 69 93 03/12/20 23:25 71 95 03/12/20 23:20 72 95 03/12/20 23:15 69 145/84 95 03/12/20 23:10 62 96 03/12/20 23:05 62 97 03/12/20 23:00 60 96 03/12/20 22:55 60 96 03/12/20 22:50 58 L 97 03/12/20 22:45 57 L 134/81 97 03/12/20 22:40 53 L 97 03/12/20 22:35 55 L 97 03/12/20 22:30 55 L 97 03/12/20 22:25 51 L 97 03/12/20 22:20 74 98 03/12/20 22:15 50 L 137/78 99 03/12/20 22:10 59 L 100 03/12/20 22:09 55 L 131/76 03/12/20 22:08 64 131/76 03/12/20 22:05 53 L 98 03/12/20 22:00 56 L 97 03/12/20 21:55 56 L 100 03/12/20 21:50 57 L 100 03/12/20 21:45 62 118/66 98 03/12/20 21:36 71 98 03/12/20 21:32 64 90 03/12/20 21:31 50 L 99 03/12/20 21:26 54 L 99 03/12/20 21:21 54 L 100 03/12/20 21:16 52 L 99 03/12/20 21:15 53 L 142/91 03/12/20 21:11 56 L 100 03/12/20 21:06 64 99 03/12/20 21:01 53 L 100 03/12/20 20:56 52 L 99 03/12/20 20:51 60 100 03/12/20 20:46 58 L 100 03/12/20 20:45 54 L 145/74 03/12/20 20:41 55 L 100 03/12/20 20:36 57 L 98 03/12/20 20:31 55 L 100 03/12/20 20:26 70 98 03/12/20 20:21 71 100 03/12/20 19:20 66 97 03/12/20 19:15 56 L 136/82 100 03/12/20 19:10 56 L 100 03/12/20 19:05 56 L 100 03/12/20 19:00 98.4 F 62 97 03/12/20 18:55 54 L 100 03/12/20 18:50 67 98 03/12/20 18:45 56 L 147/87 100 03/12/20 18:40 60 100 03/12/20 18:38 67 87 03/12/20 18:35 61 96 03/12/20 18:33 56 L 85 03/12/20 18:30 57 L 99 03/12/20 18:25 60 99 03/12/20 18:20 58 L 99 03/12/20 18:15 58 L 142/83 100 03/12/20 18:10 57 L 99 03/12/20 18:08 20 03/12/20 18:07 58 L 93 03/12/20 18:05 53 L 100 03/12/20 18:00 67 99 03/12/20 17:58 83 157/72 03/12/20 17:55 67 100 03/12/20 17:50 68 99 03/12/20 17:45 64 100 03/12/20 17:43 65 157/78 03/12/20 17:40 61 78 L 03/12/20 17:31 55 L 96 03/12/20 17:27 57 L 159/80 03/12/20 17:26 57 L 99 03/12/20 17:21 56 L 99 03/12/20 17:16 52 L 99 03/12/20 17:13 53 L 175/82 03/12/20 17:11 54 L 99 03/12/20 17:06 51 L 100 03/12/20 17:01 53 L 100 03/12/20 16:58 52 L 169/80 03/12/20 16:56 55 L 99 03/12/20 16:51 54 L 99 03/12/20 16:46 56 L 100 03/12/20 16:42 53 L 141/83 03/12/20 16:41 54 L 98 03/12/20 16:36 98.2 F 59 L 20 99 03/12/20 16:31 54 L 100 03/12/20 16:26 53 L 147/86 98 03/12/20 16:22 54 L 150/84 03/12/20 16:21 54 L 99 03/12/20 16:17 57 L 154/80 03/12/20 16:16 57 L 97 03/12/20 16:12 53 L 147/69 03/12/20 16:11 55 L 100 03/12/20 16:07 51 L 152/72 03/12/20 16:06 55 L 100 03/12/20 16:02 52 L 151/77 03/12/20 16:01 49 L 98 03/12/20 15:57 53 L 150/83 03/12/20 15:56 50 L 100 03/12/20 15:52 48 L 159/87 03/12/20 15:51 51 L 99 03/12/20 15:46 48 L 100 03/12/20 15:44 51 L 147/77 03/12/20 15:41 54 L 100 03/12/20 15:36 61 100 03/12/20 15:31 50 L 100 03/12/20 15:29 55 L 152/72 03/12/20 15:26 59 L 98 03/12/20 15:21 53 L 100 03/12/20 15:16 53 L 99 03/12/20 15:14 50 L 159/70 03/12/20 15:11 52 L 98 03/12/20 15:06 50 L 100 03/12/20 15:01 55 L 99 03/12/20 14:59 51 L 121/58 03/12/20 14:57 54 L 121/58 03/12/20 14:56 65 100 03/12/20 14:51 52 L 99 03/12/20 14:46 48 L 100 03/12/20 14:44 51 L 158/87 03/12/20 14:41 55 L 99 03/12/20 14:36 56 L 100 03/12/20 14:31 50 L 98 03/12/20 14:29 51 L 166/85 03/12/20 14:26 53 L 100 03/12/20 14:21 48 L 99 03/12/20 14:16 58 L 97 03/12/20 14:14 48 L 159/81 03/12/20 14:11 50 L 100 03/12/20 14:06 60 99 03/12/20 14:02 99.1 F 53 L 14 164/86 99 03/12/20 14:01 50 L 164/86 96 Intake and Output 03/12/20 03/13/20 03/13/20 23:59 07:59 15:59 Intake Total 930 Output Total 600 1650 Balance -600 -720 Intake: IV 930 Lactated Ringers 1,000 ml 930 @ 75 mls/hr IV DIRECT KYARA Rx#:[id number] Output: Urine 600 1650 Void 600 1650 Other: Total, Output Amount 400 500 # Voids Void 1 1 - Labs Labs: Abnormal lab results 03/12/20 03/12/20 03/12/20 Range/Units 18:12 Unknown Unknown RBC 3.64 L (3.65-5.03) M/mm3 Hgb 9.7 L (10.1-14.3) gm/dl MCH 27 L (28-32) pg Chloride 109.4 H (98-107) mmol/L Magnesium 3.40 H (1.7-2.3) mg/dL ALT 78 H (7-56) units/L Albumin 3.6 L (3.9-5) g/dL 03/13/20 03/13/20 Range/Units 00:13 06:25 RBC (3.65-5.03) M/mm3 Hgb (10.1-14.3) gm/dl MCH (28-32) pg Chloride (98-107) mmol/L Magnesium 4.50 H 5.40 H (1.7-2.3) mg/dL ALT (7-56) units/L Albumin (3.9-5) g/dL
--- NOTE | 2020-03-13 14:01 | Short Stay Summary ---
Short Stay Documentation Date of service: 03/13/20 Narrative H&P: Patient observed for 24 hours for preeclampsia and severe headache which was resolved with Fioricet. Patient also sent home with 100 mg twice daily of labetalol to control her blood pressure. PT was on Magnesium during her stay. Patient advised to follow-up in the office in 1 week. Please see H&P and progress note for details. - History H&P: dictated - Allergies and Medications Current Medications: Allergies No Known Allergies Allergy (Verified 02/28/20 10:07) Home Medications Medication Instructions Recorded Confirmed Last Taken Type Ferrous Sulfate [Feosol 325 MG tab] 325 mg PO TID #90 tablet 03/27/14 03/01/20 Unknown Rx Ibuprofen [Motrin 800 MG tab] 800 mg PO Q8H PRN #90 tablet 03/27/14 03/01/20 Unknown Rx oxyCODONE /ACETAMINOPHEN [Percocet 1 tab PO Q6HR PRN #30 tablet 03/27/14 03/01/20 Unknown Rx 5/325 mg] Naproxen [Naprosyn TAB] 500 mg PO BID #14 tablet 10/05/16 03/01/20 Unknown Rx traMADoL [Ultram 50 MG tab] 50 mg PO Q6HR PRN #18 tablet 10/05/16 03/01/20 Unknown Rx Cyclobenzaprine [Flexeril] 10 mg PO TID PRN #15 tablet 10/07/16 03/01/20 Unknown Rx Ibuprofen [Motrin 600 MG tab] 600 mg PO Q8H PRN #15 tablet 10/07/16 03/01/20 Unknown Rx Polymyxin B Sulf/Trimethoprim 1 drop OP QID #10 ml 10/26/16 03/01/20 Unknown Rx [Polytrim Eye Drops [id number]/0.1%] Ibuprofen [Motrin 800 MG tab] 800 mg PO Q6H PRN #30 tablet 02/28/20 Unknown Rx oxyCODONE /ACETAMINOPHEN [Percocet 1 tab PO Q6H PRN #30 tablet 02/28/20 Unknown Rx 5/325 mg] Butalb/Acetamin/Caff 50-325-40 1 tab PO Q4H PRN #30 tablet 03/13/20 Unknown Rx [Fioricet 50-325-40] labetaloL [Labetalol 100mg TAB] 100 mg PO BID #90 tablet 03/13/20 Unknown Rx Active Medications Acetaminophen/Butalbital/Caffeine (Fioricet) 1 tab PO Q4H PRN PRN Reason: Headache Last Admin: 03/13/20 08:20 Dose: 1 tab Documented by: Albuterol (Proventil) 2.5 mg IH Q4HRT PRN PRN Reason: Shortness Of Breath Magnesium Sulfate (Magnesium Sulfate 40gm/1000ml) 40 gm in 1,000 mls @ 50 mls/hr IV DIRECT KYARA Last Admin: 03/12/20 16:25 Dose: 2 gm/hr, 50 mls/hr Documented by: Lactated Ringer's (Lactated Ringers) 1,000 mls @ 75 mls/hr IV DIRECT KYARA Last Admin: 03/13/20 04:09 Dose: 75 mls/hr Documented by: Ibuprofen (Ibuprofen) 800 mg PO Q8H PRN PRN Reason: Pain, Mild (1-3) Labetalol HCl (Labetalol) 100 mg PO BID [facility] Last Admin: 03/13/20 09:53 Dose: 100 mg Documented by: Labetalol HCl (Labetalol) 20 mg IV PRN PRN PRN Reason: Hypertension - Disposition Condition at discharge: Stable Disposition: DC-01 TO HOME OR SELFCARE - Discharge Diagnoses (1) Preeclampsia in period Status: Acute Short Stay Discharge Plan Follow up with: MARILU RUST MD [Staff Physician] - 7 Days Prescriptions: Butalb/Acetamin/Caff 50-325-40 [Fioricet 50-325-40] 1 tab PO Q4H PRN #30 tablet PRN Reason: Headache labetaloL [Labetalol 100mg TAB] 100 mg PO BID #90 tablet
[2020-03-13] MEDS ORDERED: IBUPROFEN 800 MG TAB PO PRN (15:00)
[2020-03-13 15:56] VITALS: BP 153/78
== END 2020-03-13 14:00 | disposition home or self-care (01) ==
LOC: 3A 12:55 → INTOOBSV 12:55 → UNDOADMOB 12:55 → LD 13:21
PROVIDERS: ADMIT Obstetrics & Gynecology; ATTEND Obstetrics & Gynecology
DX: O89.4 Spinal and epidural anesthesia-induced headache during the puerperium (principal); O14.95 Unspecified pre-eclampsia, complicating the puerperium; J45.909 Unspecified asthma, uncomplicated; Z98.890 Other specified postprocedural states; Z98.891 History of uterine scar from previous surgery
CPT/HCPCS: 36415; 80053; 83735; 85027; 96361; 96365; 96366; G0378; G0379; J3475; J7120